=== PATIENT | female | born 1960 | race Caucasian/White ===

== ENCOUNTER 2017-02-07 18:45 | Emergency (ER) | payer BC, OTHER ==
[~2017-02-07] VITALS: Ht 149.9 cm; Wt 51.7 kg
[~2017-02-07 18:45] MED LIST: ASPIR 8181 MG PO; CYCLOBENZAPRINE5 MG PO; FISH OIL 1,001000 M2 PO; GINKGO60 MG PO; VITAMIN D1000 UNI1 PO; VITAMIN E400 UNIT PO; VITAMINC500 PO
[2017-02-07] MEDS ORDERED: ZANAFLEX2 M1 PO (19:29)
[2017-02-07] MEDS ORDERED: PREDNISONE 10 M10 MG PO (19:29)
[2017-02-07] MEDS ORDERED: MOBIC15 MG PO (19:30)
[2017-02-07] MEDS ORDERED: AUGMENTIN 875-1 EACH PO (19:30)
[2017-02-07] MEDS ORDERED: NORCO 5-325 TA1 EACH PO (20:59)
[2017-02-07] MEDS ORDERED: IBUPROFEN 600600 M1 PO (20:59)
[2017-02-07] MEDS ORDERED: KEFLEX500 M1 PO (20:59)
[2017-02-07 21:03] VITALS: BP 125/62
== END 2017-02-07 21:15 | disposition home or self-care (01) ==
LOC: ER 18:45
DX: S02.82XA Fracture of other specified skull and facial bones, left side, initial encounter for closed fracture (principal); W18.09XA Striking against other object with subsequent fall, initial encounter; Y93.89 Activity, other specified; Y92.89 Other specified places as the place of occurrence of the external cause; Y99.8 Other external cause status